=== PATIENT | female | born 1960 | race Caucasian/White ===

== ENCOUNTER 2024-03-23 11:36 | Day surgery (SDC) | payer MEDICARE, OTHER ==
[2024-03-23] MEDS: SODIUM CHLORIDE 0.9% 1,000 ML IV SCH (11:57)
[2024-03-23 12:34] VITALS: RESP 18
[2024-03-23] MEDS ORDERED: LIDOCAINE 1% INJ 10MG/ML (20 ML MDV) ONE (13:23)
[2024-03-23] MEDS: LIDOCAINE 1% INJ 10MG/ML (20 ML MDV) SQ ONE (13:34)
--- NOTE | 2024-03-23 13:46 | P.EPPROC ---
- EP Procedure Note Electrophysiology Procedure Note: Loop monitor implant Primary physicians: Adri Kerns Manager Skilled: Dr. Rose Indication: Cryptogenic stroke Patient was brought to the EP lab in a fasting state. Written informed consent was obtained prior to the procedure. The left pectoral area was prepped and draped per protocol. Intravenous antibiotic was administered preoperatively. A subcutaneous Loop monitor was implanted successfully and the wound was closed per protocol. The device was programmed to detect significant raimundo- arrhythmic and tachy-arrhythmic events, per protocol. Device and programming details: Cryptogenic stroke programming
[2024-03-23 14:46] VITALS: BP 158/74; PULSE 85
== END 2024-03-23 14:24 | disposition home or self-care (01) ==
LOC: CATHEP 11:36
PROVIDERS: ATTEND Internal Medicine Clinical Cardiac Electrophysiology
DX: I63.9 Cerebral infarction, unspecified (principal); E78.5 Hyperlipidemia, unspecified; F17.200 Nicotine dependence, unspecified, uncomplicated; Z85.820 Personal history of malignant melanoma of skin; Z88.1 Allergy status to other antibiotic agents; Z88.8 Allergy status to other drugs, medicaments and biological substances; Z79.1 Long term (current) use of non-steroidal anti-inflammatories (NSAID); Z79.899 Other long term (current) drug therapy
CPT/HCPCS: 33285; C1764; J0690; J2001